=== PATIENT | male | born 1960 | race Caucasian/White ===

== ENCOUNTER 2022-03-06 08:03 | Day surgery (SDC) | payer OTHER ==
[~2022-03-06] VITALS: Ht 175.3 cm; Wt 111.6 kg
[2022-03-06] MEDS ORDERED: MIDAZOLAM 5 MG/5 ML VIAL ONE (09:27)
[2022-03-06] MEDS ORDERED: fentaNYL citrate 0.05 MG/ML VIAL ONE (09:27)
[2022-03-06] MEDS ORDERED: LIDOCAINE 2% 100 MG/5 ML UJET TP ONE (09:28)
== END 2022-03-06 11:33 | disposition home or self-care (01) ==
LOC: MDS 08:03 → MMU 08:04 → MDS 11:33
PROVIDERS: ATTEND Internal Medicine Gastroenterology
DX: Z12.11 Encounter for screening for malignant neoplasm of colon (principal); D12.4 Benign neoplasm of descending colon; K57.30 Diverticulosis of large intestine without perforation or abscess without bleeding; Z86.010 Personal history of colon polyps; I10 Essential (primary) hypertension; E11.9 Type 2 diabetes mellitus without complications; Z85.46 Personal history of malignant neoplasm of prostate; Z88.0 Allergy status to penicillin; Z79.899 Other long term (current) drug therapy; Z20.822 Contact with and (suspected) exposure to COVID-19
CPT/HCPCS: 45378; 87426; J2250; J3010